=== PATIENT | female | born 1950 | race Caucasian/White ===

== ENCOUNTER 2017-11-13 10:14 | Emergency (ER) | payer OTHER ==
[2017-11-13 10:40] VITALS: BP 128/76; PULSE 98; RESP 20; TEMP 97; O2SAT 98
[2017-11-13] MEDS ORDERED: Tdap Vaccine 0.5 ml Vial (10-64 yrs) IM ONE ×2 (10:59→11:03)
[2017-11-13] MEDS ORDERED: Silver Sulfadiazine 1% CREAM (50 gm) TOP STA (11:00)
[2017-11-13] MEDS ORDERED: Silver Sulfadiazine 1% CREAM (50 gm) ONE (11:19)
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
== END 2017-11-13 12:26 | disposition home or self-care (01) ==
LOC: H.ER 10:14
DX: T23.101A Burn of first degree of right hand, unspecified site, initial encounter (principal); X10.2XXA Contact with fats and cooking oils, initial encounter; Y92.89 Other specified places as the place of occurrence of the external cause; Z88.0 Allergy status to penicillin